=== PATIENT | female | born 1950 | race Caucasian/White ===

== ENCOUNTER 2017-08-31 19:45 | Emergency (ER) | payer OTHER, MEDICARE ==
--- NOTE | 2017-08-31 20:09 | PDOC ---
Rapid Medical Evaluation Medical Evaluation: Allergies Allergy/AdvReac Type Severity Reaction Status Date / Time Sulfa (Sulfonamide Allergy Verified 08/04/13 20:28 Antibiotics) 08/31/17 20:07 I have performed a brief in-person evaluation of this patient. The patient presents with a chief complaint of: "thrombosed hemorrhoid", "can't sit", denies bleeding, sent by on-call GI Dr. Grimm (Dr. Lanza is pt's GI doc ) Pertinent physical exam findings: n/a I have ordered the following: labs The patient will proceed to the ED for further evaluation.
[2017-08-31 20:10] VITALS: BP 151/105; PULSE 91; TEMP 97.7; BMI 26.2
[2017-08-31] MEDS ORDERED: LIDOCAINE HCL 5% TOP OINTMENT 50 GM TUBE TP ONE (21:00)
[2017-08-31] MEDS ORDERED: MINERAL OIL ENEMA 133 ML ENEMA PR ONE ×2 (21:02→23:22)
[2017-08-31 21:55] LABS: BASOPHIL 0.9 % (0-2.0); EOSINOPHIL 0.7 % (0-4.5); MCHC 34.2 g/dl (32.0-36.0); MEAN CELL VOLUME 96.5 fl (80-96); MEAN PLT VOLUME 7.9 fl (7.5-11.1); NEUTROPHILS 71.6 % (42.8-82.8); PLATELET COUNT 195 K/MM3 (134-434); RDW 13.8 % (11.6-15.6); WHITE BLOOD COUNT 8.5 K/mm3 (4.0-10.0)
[2017-08-31 22:06] LABS: INR 1.02 (0.82-1.09); PROTHROMBIN TIME (PATIENT) 11.5 SEC (9.98-11.88)
[2017-08-31 22:44] LABS: ALBUMIN 3.7 g/dl (3.4-5.0); ALK PHOS 55 U/L (45-117); ANION GAP 7 (8-16); BILIRUBIN,TOTAL 0.6 mg/dL (0.2-1.0); CALCIUM 9.5 mg/dL (8.5-10.1); CO2 30 mmol/L (21-32); CREATININE 1.5 mg/dL (0.55-1.02); GLUCOSE,RANDOM 97 mg/dL (74-106); SGOT/AST 18 U/L (15-37); SGPT/ALT 23 U/L (12-78); TOT PROT 6.3 g/dl (6.4-8.2)
--- NOTE | 2017-08-31 23:00 | PDOC ---
History of Present Illness - General History Source: Patient Exam Limitations: No Limitations - History of Present Illness Initial Comments: 08/31/17 23:15 The patient is a 67 year old female presenting with her , with a significant past medical history of hypothyroidism and acute renal failure (9 years ago), who presents to the emergency department with hemorrhoid pain onset today. She notes that she feels as if her hemorrhoids as coming out when she attempted to have a bowel movement today. She notes she did pass a small amount of stool today but that is was too painful to continue. She reports that she talked to her PMD who advised her to come to the ED for further evaluation. The patient denies chest pain, shortness of breath, headache and dizziness. Denies fever, chills, nausea, vomit, diarrhea and constipation. Denies dysuria, frequency, urgency and hematuria. Allergies: Sulfa Past surgical history: None reported Social history: No alcohol, tobacco or drug use reported GI: Dr. Lanza <Satish Zurita - Last Filed: 08/31/17 23:15> <Lanny Fontenot - Last Filed: 09/01/17 00:20> - General Chief Complaint: Hemorrhoids Stated Complaint: PCP SENT Time Seen by Provider: 08/31/17 20:10 Past History <Satish Zurita - Last Filed: 08/31/17 23:15> - Past Medical History COPD: No Thyroid Disease: Yes - Suicide/Smoking/Psychosocial Hx Smoking History: Never smoked Have you smoked in the past 12 months: No Number of Cigarettes Smoked Daily: 0 Information on smoking cessation initiated: No Hx Alcohol Use: No Drug/Substance Use Hx: No Substance Use Type: None <Lanny Fontenot - Last Filed: 09/01/17 00:20> - Past Medical History Allergies/Adverse Reactions: Allergies Allergy/AdvReac Type Severity Reaction Status Date / Time Sulfa (Sulfonamide Allergy Verified 08/31/17 20:10 Antibiotics) Home Medications: Ambulatory Orders Calcitriol [Calcitriol -] 0.25 mcg PO BID 08/04/13 Calcium Carbonate 500 gm PO TID 08/04/13 Levothyroxine [Synthroid -] 88 mcg PO DAILY 08/04/13 Trospium Chloride [Sanctura] 60 mg PO DAILY 08/04/13 Docusate Sodium [Colace -] 100 mg PO BID #14 capsule 09/01/17 Magnesium Citrate 295 ml PO ONCE #1 solution 09/01/17 Review of Systems - Review of Systems Able to Perform ROS?: Yes Comments:: 08/31/17 23:16 GENERAL/CONSTITUTIONAL: No fever or chills. No weakness. HEAD, EYES, EARS, NOSE AND THROAT: No change in vision. No ear pain or discharge. No sore throat.- CARDIOVASCULAR: No chest pain or shortness of breath RESPIRATORY: No cough, wheezing, or hemoptysis. GASTROINTESTINAL: (+) Hemrrhoid pain. No nausea, vomiting, diarrhea or constipation. GENITOURINARY: No dysuria, frequency, or change in urination. MUSCULOSKELETAL: No joint or muscle swelling or pain. No neck or back pain. SKIN: No rash NEUROLOGIC: No headache, vertigo, loss of consciousness, or change in strength/ sensation. ENDOCRINE: No increased thirst. No abnormal weight change HEMATOLOGIC/LYMPHATIC: No anemia, easy bleeding, or history of blood clots. ALLERGIC/IMMUNOLOGIC: No hives or skin allergy. <Satish Zurita - Last Filed: 08/31/17 23:15> *Physical Exam - Vital Signs Last Vital Signs Temp Pulse Resp BP Pulse Ox 97.7 F 91 H 18 151/105 98 08/31/17 20:07 08/31/17 20:07 08/31/17 20:07 08/31/17 20:07 08/31/17 20:07 - Physical Exam Comments: 08/31/17 23:16 GENERAL: Awake, alert, and fully oriented, in no acute distress HEAD: No signs of trauma, normocephalic, atraumatic EYES: PERRLA, EOMI, sclera anicteric, conjunctiva clear ENT: Auricles normal inspection, hearing grossly normal, nares patent, oropharynx clear without exudates. Moist mucosa NECK: Normal ROM, supple, no lymphadenopathy, JVD, or masses LUNGS: No distress, speaks full sentences, clear to auscultation bilaterally HEART: Regular rate and rhythm, normal S1 and S2, no murmurs, rubs or gallops, peripheral pulses normal and equal bilaterally. ABDOMEN: Soft, nontender, normoactive bowel sounds. No guarding, no rebound. No masses EXTREMITIES : Normal inspection, Normal range of motion, no edema. No clubbing or cyanosis. NEUROLOGICAL: Cranial nerves II through XII grossly intact. Normal speech, normal gait, no focal sensorimotor deficits SKIN: Warm, Dry, normal turgor, no rashes or lesions noted. RECTAL EXAM: (+) Engorged hemrrhoid, no external bleeding, hard stool noted in exam. <Satish Zurita - Last Filed: 08/31/17 23:15> - Vital Signs Last Vital Signs Temp Pulse Resp BP Pulse Ox 97.7 F 91 H 18 151/105 98 08/31/17 20:07 08/31/17 20:07 08/31/17 20:07 08/31/17 20:07 08/31/17 20:07 <Lanny Fontenot - Last Filed: 09/01/17 00:20> ED Treatment Course - LABORATORY CBC & Chemistry Diagram: 08/31/17 21:41 08/31/17 21:47 - ADDITIONAL ORDERS Additional order review: Laboratory Results 08/31/17 08/31/17 08/31/17 21:47 21:47 21:41 PT with INR 11.50 INR 1.02 PTT (Actin FS) 26.0 L Sodium 142 Potassium 3.8 Chloride 105 Carbon Dioxide 30 Anion Gap 7 L BUN 38 H Creatinine 1.5 H D Creat Clearance w eGFR 34.53 Random Glucose 97 Calcium 9.5 Total Bilirubin 0.6 D AST 18 ALT 23 Alkaline Phosphatase 55 D Total Protein 6.3 L Albumin 3.7 Blood Type A POSITIVE Antibody Screen Negative 08/31/17 21:41 RBC 4.54 MCV 96.5 H MCHC 34.2 RDW 13.8 MPV 7.9 Neutrophils % 71.6 Lymphocytes % 18.7 D Monocytes % 8.1 D Eosinophils % 0.7 Basophils % 0.9 - Medications Given in the ED: ED Medications Discontinued Medications Generic Name Dose Route Start Last Admin Trade Name Freq PRN Reason Stop Dose Admin Lidocaine HCl 1 applic 08/31/17 21:00 08/31/17 21:59 Xylocaine 5% Top. Ointment TP 08/31/17 21:01 1 applic ONCE ONE Administration Mineral Oil 133 ml 08/31/17 21:02 08/31/17 22:23 Fleet Mineral Oil Rectal Enema - HI 08/31/17 21:03 133 ml NOW ONE Administration <Satish Zurita - Last Filed: 08/31/17 23:15> - LABORATORY CBC & Chemistry Diagram: 08/31/17 21:41 08/31/17 21:47 - ADDITIONAL ORDERS Additional order review: Laboratory Results 08/31/17 08/31/17 21:47 21:47 PT with INR 11.50 INR 1.02 PTT (Actin FS) 26.0 L Sodium 142 Potassium 3.8 Chloride 105 Carbon Dioxide 30 Anion Gap 7 L BUN 38 H Creatinine 1.5 H D Creat Clearance w eGFR 34.53 Random Glucose 97 Calcium 9.5 Total Bilirubin 0.6 D AST 18 ALT 23 Alkaline Phosphatase 55 D Total Protein 6.3 L Albumin 3.7 08/31/17 21:41 RBC 4.54 MCV 96.5 H MCHC 34.2 RDW 13.8 MPV 7.9 Neutrophils % 71.6 Lymphocytes % 18.7 D Monocytes % 8.1 D Eosinophils % 0.7 Basophils % 0.9 - Medications Given in the ED: ED Medications Discontinued Medications Generic Name Dose Route Start Last Admin Trade Name Freq PRN Reason Stop Dose Admin Lidocaine HCl 1 applic 08/31/17 21:00 08/31/17 21:59 Xylocaine 5% Top. Ointment TP 08/31/17 21:01 1 applic ONCE ONE Administration Mineral Oil 133 ml 08/31/17 21:02 08/31/17 22:23 Fleet Mineral Oil Rectal Enema - HI 08/31/17 21:03 133 ml NOW ONE Administration <Lanny Fontenot - Last Filed: 09/01/17 00:20> Medical Decision Making - Medical Decision Making 08/31/17 22:57 a/p: 67yo female with external rectal hemorrhoid -no thrombosed hemorrhoid on exam -will give topical lidocaine for pain control -constipated with hard stool -after lidocaine medication, will give mineral oil enema 08/31/17 23:58 after given enema - large amount of stool in the rectum manual disimpaction resulted in large amount of stool removed from the rectum will give another enema 08/31/17 23:59 pt now having BM 09/01/17 00:09 repeat rectal exam - performed another digital rectal disimpaction with removal of a large amount of stool will apply anusol cream to the external hemorrhoid no internal masses or internal hemorrhoids palpated no blood in stool no bleeding from the hemorrhoid pt feeling much better. <Lanny Fontenot - Last Filed: 09/01/17 00:20> *DC/Admit/Observation/Transfer - Attestations Scribe Attestion: 08/31/17 23:16 Documentation prepared by Satish Zurita, acting as medical office technician for Lanny Fontenot MD <Satish Zurita - Last Filed: 08/31/17 23:15> - Discharge Dispostion Admit: No - Attestations Physician Attestion: 09/01/17 00:20 I, Dr. Lanny Fontenot, DO, attest that this document has been prepared under my direction and personally reviewed by me in its entirety. I further attest, that it accurately reflects all work, treatment, procedures and medical decision -making performed by me. <Lanny Fontenot - Last Filed: 09/01/17 00:20> Diagnosis at time of Disposition: Fecal impaction in rectum, External hemorrhoid - Discharge Dispostion Disposition: HOME Condition at time of disposition: Stable - Prescriptions Prescriptions: Docusate Sodium [Colace -] 100 mg PO BID #14 capsule Magnesium Citrate 295 ml PO ONCE #1 solution - Referrals Referrals: Jimmy Cortez MD [Primary Care Provider] - Dawson Lanza MD [Staff Physician] - - Patient Instructions Printed Discharge Instructions: DI for Hemorrhoids, DI for Fecal Impaction Additional Instructions: Please take all meds as prescribed. Please follow up with Dr. Lanza. Please stop taking the miralax if you develop diarrhea. Please return to the ED with any further concerns. - Post Discharge Activity
[2017-08-31] MEDS ORDERED: DOCUSATE SODIUM 100 MG CAPSULE (FP) PO ONE ×2 (23:23→23:35)
[2017-08-31] MEDS ORDERED: HYDROCORTISONE 2.5% TOPICAL CREAM 30 GM TUBE PR ONE (23:58)
== END 2017-09-01 00:44 | disposition home or self-care (01) ==
LOC: JER 19:45
DX: K64.9 Unspecified hemorrhoids (principal); K56.41 Fecal impaction; E03.9 Hypothyroidism, unspecified
CPT/HCPCS: 36415; 80053; 85025; 85610; 85730; 86850; 86900; 86901; 99282-25

== ENCOUNTER 2020-03-09 06:00 | Inpatient (IN) | payer OTHER, MEDICARE ==
[2020-03-05 10:35] VITALS: BMI 25.2
--- NOTE | 2020-03-08 23:22 | HP ---
Admitting History and Physical - Admission Chief Complaint: right hip osteoarthritis x years History of Present Illness: 69 year old female presents in regard to their right hip. Long-standing history of right hip osteoarthritis. Patient complains of pain, limited range of motion, difficulty ambulating, and difficulty with activities of daily living. Patient has failed conservative treatment options including PO medications, activity modification, injections, and exercise programs. Radiographs revealed severe osteoarthritis of the right hip joint. At this point, patient like to proceed with surgical intervention, right total hip arthroplasty MAKOplasty. History Source: Patient - Past Medical History Cardiovascular: Yes: Hyperlipdemia Renal/: Yes: Renal Failure (H/o) Musculoskeletal: Yes: Osteoarthritis Endocrine: Yes: Hypothyroidism - Past Surgical History Additional Past Surgical History: See written history & physical. - Advance Directives Advance Directives: Yes: Health Care Proxy - Smoking History Smoking history: Never smoked Have you smoked in the past 12 months: No Aproximately how many cigarettes per day: 0 - Alcohol/Substance Use Hx Alcohol Use: No Home Medications - Allergies Allergies/Adverse Reactions: Allergies Allergy/AdvReac Type Severity Reaction Status Date / Time Sulfa (Sulfonamide Allergy Intermediate BLISTERS Verified 03/05/20 10:19 Antibiotics) ON HANDS AND FEET NSAIDS (Non-Steroidal AdvReac Severe RENAL Verified 03/05/20 10:20 Anti-Inflamma FAILURE - Home Medications Home Medications: Ambulatory Orders Calcitriol [Calcitriol -] 0.25 mcg PO BID 08/04/13 Calcium Carbonate 500 gm PO TID 08/04/13 Levothyroxine [Synthroid -] 88 mcg PO DAILY 08/04/13 Atorvastatin Ca [Lipitor] 10 mg PO HS 03/05/20 Tramadol HCl 50 mg PO TID 03/05/20 Review of Systems - Review of Systems Musculoskeletal: reports: Decreased ROM (right hip), Joint Pain (right hip) Physical Examination Constitutional: Yes: Well Nourished, No Distress Eyes: Yes: Conjunctiva Clear HENT: Yes: Atraumatic Neck: Yes: Supple Cardiovascular: Yes: Regular Rate and Rhythm Respiratory: Yes: Regular Gastrointestinal: Yes: Soft ...Rectal Exam: Yes: Deferred Musculoskeletal: Yes: Joint Stiffness (right hip), Other (Limited ROM right hip) Assessment/Plan 69 year old female presents in regard to their right hip. Long-standing history of right hip osteoarthritis. Patient complains of pain, limited range of motion, difficulty ambulating, and difficulty with activities of daily living. Patient has failed conservative treatment options including PO medications, activity modification, injections, and exercise programs. Radiographs revealed severe right hip osteoarthritis. At this point, patient like to proceed with surgical intervention, right total hip arthroplasty MAKOplasty. Pros, cons, risks, benefits, and alternatives of a right total hip arthroplasty MAKOplasty were discussed with the patient at length. Patient confirms their understanding and consents to proceed with a right total hip arthroplasty MAKOplasty.
[~2020-03-09 06:00] MED LIST: BUPIVICAINE 0.25%/MORPH PF/KETOROLAC - 51ML DISP.SYRINGE IA ONE; CEFAZOLIN 2 GM in DEXTROSE 5%-WATER - 50 ML IVPB ONE; CELECOXIB 200 MG CAPSULE PO ONE; TRANEXAMIC ACID 1000 MG/10 ML VIAL IVPUSH ONE
[2020-03-09] MEDS ORDERED: VANCOMYCIN 1,000 MG VIAL (RESTRICTED TO ID ONLY) ONE ×2 (07:07→08:56)
[2020-03-09] MEDS ORDERED: ceFAZolin SODIUM 1 GM VIAL ONE ×3 (07:07→17:59)
[2020-03-09] MEDS: oxyCODONE HCL 10 MG SUSTAINED ACTING TABLET PO ONE ×2 (07:10→13:31)
[2020-03-09] MEDS: PANTOPRAZOLE 40 MG TABLET PO ONE ×2 (07:11→13:32)
[2020-03-09] MEDS ORDERED: TRANEXAMIC ACID 1000 MG/10 ML VIAL ONE (07:18)
[2020-03-09] MEDS ORDERED: PROPOFOL 20 ML ONE ×2 (07:19→10:22)
[2020-03-09] MEDS ORDERED: BUPIVACAINE HCL/PF 0.5% (5 MG/ML) 30 ML VIAL IJ ONE (07:26)
[2020-03-09] MEDS ORDERED: MIDAZOLAM HCL 2 MG/2 ML SINGLE DOSE VIAL ONE (07:26)
[2020-03-09] MEDS ORDERED: BUPIVACAINE HCL/PF 0.5% (5MG/ML) 10 ML VIAL ONE (08:11)
[2020-03-09] MEDS ORDERED: VANCOMYCIN 1,000 MG VIAL (RESTRICTED TO ID ONLY) IVPB ONE (10:14)
[2020-03-09] MEDS ORDERED: TRANEXAMIC ACID 1000 MG/10 ML VIAL IVPUSH ONE ×2 (10:15→10:43)
[2020-03-09] MEDS ORDERED: ONDANSETRON 4 MG/2 ML VIAL ONE (11:10)
[2020-03-09] MEDS ORDERED: traMADol HCL 50 MG TABLET ONE (11:10)
[2020-03-09] MEDS ORDERED: ACETAMINOPHEN INJECTION 100 ML IVPB ONE (11:10)
--- NOTE | 2020-03-09 11:13 | OP ---
Operative Note - Note: Operative Date: 03/09/20 Pre-Operative Diagnosis: Right hip OA Operation: Right MELVA LIDIA Post-Operative Diagnosis: Same as Pre-op Surgeon: Aleksander Nugent X Ray Operator: Jaxon Mcallister Anesthesia: Spinal Estimated Blood Loss (mls): 200
[2020-03-09] MEDS: ONDANSETRON 4 MG/2 ML VIAL IVPUSH PRN ×2 (11:15→15:06)
[2020-03-09] MEDS ORDERED: MAG HYDROX/AL HYDROX/SIMETH 30 ML UNIT-DOSE CUP PO PRN (11:16)
[2020-03-09] MEDS ORDERED: MAGNESIUM HYDROX 2400MG/30ML ORAL SUSPENSION 30 ML CUP PO PRN (11:16)
[2020-03-09] MEDS: ACETAMINOPHEN 1000 MG/100 ML VIAL (NON FORMULARY) IVPB ONE ×2 (11:20→13:32)
[2020-03-09] MEDS ORDERED: LACTATED RINGERS SOLUTION 1,000 ML IV SCH (11:30)
[2020-03-09] MEDS: traMADol HCL 50 MG TABLET PO SCH ×3 (11:30→22:57)
[2020-03-09] MEDS ORDERED: oxyCODONE HCL 5 MG TABLET PO PRN (11:31)
[2020-03-09] MEDS ORDERED: ONDANSETRON 4 MG/2 ML VIAL IVPUSH PRN (11:31)
[2020-03-09] MEDS ORDERED: PROMETHAZINE HCL 25 MG/1 ML VIAL IVPUSH PRN (11:31)
[2020-03-09] MEDS: LEVOTHYROXINE NA 88 MCG TABLET (FP) PO SCH (13:35)
[2020-03-09] MEDS: oxyCODONE HCL 5 MG TABLET PO PRN ×2 (15:07→18:04)
[2020-03-09] MEDS: CALCIUM (OYSTER SHELL) 500 MG TABLET (FP) PO SCH ×2 (15:08→21:24)
--- NOTE | 2020-03-09 15:38 | SURG ---
Surgery Cctv Technician Note Cctv Technician: Jaxon Mcallister PA-C Date of Service: 03/09/20 Diagnosis: Right hip OA Procedure: Right MELVA Total Hip Arthroplasty I was present for the entirety of the operative procedure. For further detail, please refer to operative report. Visit type - Case Type Case Type: Scheduled - New patient This patient is new to me today: Yes Date on this admission: 03/09/20
[2020-03-09] MEDS ORDERED: DEXTROSE 5%-WATER 100 ML IVPB ONE (18:00)
[2020-03-09] MEDS: CEFAZOLIN 2 GM in DEXTROSE 5%-WATER 100 ML IVPB SCH (18:04)
[2020-03-09] MEDS: ACETAMINOPHEN 325 MG TABLET (FP) PO SCH ×2 (18:04→22:58)
[2020-03-09] MEDS ORDERED: DEXAMETHASONE SOD PHOSPHATE 10 MG/1 ML VIAL IVPB ONE (20:00)
[2020-03-09] MEDS: SENNOSIDES/DOCUSATE COMBO (SENNA PLUS) TABLET (UD) PO SCH (21:24)
[2020-03-09] MEDS: ATORVASTATIN CA 10 MG TABLET (FP) PO SCH (21:26)
[2020-03-09] MEDS: GABAPENTIN 300 MG CAPSULE PO SCH (21:26)
[2020-03-09] MEDS: CALCITRIOL 0.25 MCG CAPSULE (FP) PO SCH (21:27)
[2020-03-09] MEDS: ASCORBIC ACID 500 MG TABLET (FP) PO SCH (21:27)
[2020-03-10] MEDS ORDERED: PT OWN MED DRAWER 7, Y5N ONE ×2 (00:06→06:33)
[2020-03-10] MEDS ORDERED: DEXTROSE 5%-WATER 100 ML IVPB ONE (01:08)
[2020-03-10] MEDS ORDERED: ceFAZolin SODIUM 1 GM VIAL ONE (01:08)
[2020-03-10] MEDS: CEFAZOLIN 2 GM in DEXTROSE 5%-WATER 100 ML IVPB SCH (01:15)
[2020-03-10] MEDS: ACETAMINOPHEN 325 MG TABLET (FP) PO SCH ×4 (06:19→22:58)
[2020-03-10] MEDS: CALCIUM (OYSTER SHELL) 500 MG TABLET (FP) PO SCH ×3 (06:19→21:42)
[2020-03-10] MEDS: traMADol HCL 50 MG TABLET PO SCH ×4 (06:19→22:57)
[2020-03-10] MEDS: LEVOTHYROXINE NA 88 MCG TABLET (FP) PO SCH (06:20)
[2020-03-10] MEDS: CALCITRIOL 0.25 MCG CAPSULE (FP) PO SCH ×3 (06:43→21:42)
[2020-03-10 08:37] LABS: HEMATOCRIT 38.5 % (32.4-45.2); HEMOGLOBIN 12.9 GM/dl (10.7-15.3); MCH 32.6 pg (25.7-33.7); MCHC 33.6 g/dl (32.0-36.0); MEAN CELL VOLUME 97.3 fl (80-96); MEAN PLT VOLUME 7.4 fl (7.5-11.1); PLATELET COUNT 319 K/MM3 (134-434); RBC 3.96 M/mm3 (3.60-5.2); RDW 13.4 % (11.6-15.6); WHITE BLOOD COUNT 13.4 K/mm3 (4.0-10.8)
[2020-03-10 08:50] LABS: CALCIUM 8.1 mg/dl (8.5-10); CREATININE 1.2 mg/dl (0.55-1.3); POTASSIUM 3.6 mmol/L (3.5-5.1)
--- NOTE | 2020-03-10 09:33 | SPEC ---
DATE OF OPERATION: 03/09/2020 PREOPERATIVE DIAGNOSIS: Right hip osteoarthritis. POSTOPERATIVE DIAGNOSIS: Right hip osteoarthritis. PROCEDURE: Right total hip replacement with MAKOplasty robotic navigation. ATTENDING: Janett Euceda MD WRAPPER STRIPPER: KRISHNA Davis ANESTHESIA: Spinal plus sedation. ESTIMATED BLOOD LOSS: 200 mL. COMPLICATIONS: None. DISPOSITION: The patient was transferred to the PACU in stable condition. IMPLANTS USED: Umair Accolade II size 4 femoral component, [place] Tre[place]ose 48-mm Trident II acetabular component with 25- and 30-mm acetabular screws, MDM bipolar head ball and liner with inner ceramic +4-mm offset head ball. INDICATIONS: This is a 69-year-old female who presented to the office complaining of severe right hip pain. She was seen and examined by Dr. Euceda, diagnosed with severe right hip osteoarthritis. The patient was initially treated conservatively with injections, medications, but continued to have severe pain and ambulatory dysfunction. She was, therefore, indicated for a right total hip replacement. The risks, benefits, and alternatives to the procedure were explained to the patient in great detail, and she elected to proceed with the surgery. On the day of surgery, the patient was taken to the operating room and placed on the OR table. Spinal anesthesia was administered by the anesthesiologist. The patient was then positioned in the lateral decubitus position on the table and all bony prominences were padded. An axillary roll was placed. The operative hip was then prepped and draped in the usual sterile fashion and intravenous antibiotics were given for infection prophylaxis. A surgical time-out was then performed with the team, and the patients identity, procedure, side, availability of implants, and the administration of antibiotics were confirmed. An approximately 15-cm longitudinal incision was made through the skin centered on the greater trochanter of the hip. This dissection was carried down through the subcutaneous tissues to the deep fascia. This fascia was then incised and a Cobra was placed around the inferior femoral neck. Electrocautery was used to reflect the anterior 40% of the gluteus medius and minimus starting at the musculotendinous junction and leaving a cuff for closure. This was reflected to reveal the capsule of the hip joint. An anterior capsulectomy was performed and the femoral head and neck were visualized. Grade 4 changes were noted diffusely throughout the joint. At this point, three small stab incisions were made superior to the main incision along the iliac crest. Three self-drilling Steinmann pins were then placed and the [employer] pelvic array was attached. Reference points on the limb were then entered into the robotic device and the limb length deficiency, offset, and femoral neck resection level were then calculated by the software. The hip was then dislocated with traction and external rotation. An oscillating saw was used to make the femoral neck cut at the level previously templated, and the femoral head was removed. Attention was then turned to the acetabulum. Retractors were then placed around the acetabulum and the labrum was removed. An acetabular checkpoint pin and the [employer] software were used to register the contours of the acetabulum. The acetabulum was then reamed in a single stage to the preoperatively templated size using the [employer] robotic arm. The appropriately sized cup was then impacted and had solid fixation as well as the preset inclination and version of 40 and 20 degrees, respectively. A polyethylene liner was then placed in the cup. Attention was then turned back to the femur, which was externally rotated for improved visualization. A femoral neck elevator was used to present the femoral neck cut, a box osteotome was used to enter the femoral canal, and a canal finder was used to go down the femoral shaft. The Keith broaches were used sequentially until the optimal scratch fit was achieved. This correlated with the preoperatively templated size. From here, several different offset head and neck configurations were tested until excellent stability and length were obtained. These measurements were quantified using the [employer] software. All trial components were then removed, the femur was copiously irrigated, and the final components were placed. Leg length and stability were checked again and found to be excellent. Irrigation was performed again. Wound closure was started by repairing the abductor muscles with a no. 2 FiberWire stitch in a Krackow configuration passed through bone tunnels in the greater trochanter and tied over a bony bridge. This repair was then reinforced with a 0 V-Loc 180 barbed suture. Next, no. 1 Polysorb and 0 V-Loc 180 were used to close the fascia. The deep subcutaneous tissue was closed with no. 1 Polysorb sutures, and 2-0 Polysorb was used for the superficial subcutaneous tissue. The skin was closed using both 3-0 V-Loc 90 suture in a running subcuticular fashion and SwiftSet skin adhesive. The Keith array and pins were removed from the iliac crest and the stab incision sites were irrigated and closed with 4-0 Polysorb sutures and SwiftSet skin adhesive. Once this was completed, a sterile dressing was applied. The patient was then awakened and taken to the PACU in stable condition. ADDENDUM: After final implants were placed, a 3-minute dilute Betadine soak was performed. Following this, the wound was thoroughly irrigated with normal saline via pulsatile lavage, and wound closure was begun. JANETT EUCEDA M.D. [id number]
[2020-03-10] MEDS: APIXABAN 2.5 MG TABLET PO SCH ×2 (10:43→21:41)
[2020-03-10] MEDS: GABAPENTIN 300 MG CAPSULE PO SCH ×2 (10:44→21:41)
[2020-03-10] MEDS: ASCORBIC ACID 500 MG TABLET (FP) PO SCH ×2 (10:44→21:42)
[2020-03-10] MEDS: PANTOPRAZOLE 40 MG TABLET PO SCH (10:44)
[2020-03-10] MEDS: MULTIVITAMINS (DAILY MVI) TABLET (FP) PO SCH (10:44)
[2020-03-10] MEDS: SENNOSIDES/DOCUSATE COMBO (SENNA PLUS) TABLET (UD) PO SCH ×2 (10:44→21:41)
--- NOTE | 2020-03-10 11:29 | PN ---
Progress Note (short form) - Note Progress Note: ANESTHESIA POSTOP 69 yo female POD #1 s/p R LIDIA, spinal and PNB Patient sitting in chair. Pain tolerable. Tolerating PO. Active participation in PT and ambulation. VSS, Afebrile Continue current care. Encouraged use of IS. No anesthetic complications.
--- NOTE | 2020-03-10 19:43 | PN ---
Progress Note (short form) - Note Progress Note: Pt seen and examined. Doing well. AVSS Selected Entries 03/10/20 03/10/20 18:00 19:33 Temperature 97.9 F Pulse Rate 79 Respiratory 18 Rate Blood Pressure 124/65 O2 Sat by Pulse 97 Oximetry (%) Oxygen Delivery Room Air Method Laboratory Tests 03/10/20 03/10/20 06:00 08:32 WBC 13.4 H Hgb 12.9 Hct 38.5 Plt Count 319 Sodium 139 Potassium 3.6 Chloride 101 Carbon Dioxide 28 Anion Gap 10 Creatinine 1.2 Random Glucose 191 H Calcium 8.1 L Gen: NAD RLE: c/d/i, NVID A/P POD#1 s/p R LIDIA PT/OOB D/C home in AM
--- NOTE | 2020-03-10 19:52 | DS ---
Physical Examination Vital Signs: Vital Signs Temperature 97.9 F 03/10/20 18:00 Pulse Rate 79 03/10/20 18:00 Respiratory Rate 18 03/10/20 19:33 Blood Pressure 124/65 03/10/20 18:00 O2 Sat by Pulse Oximetry (%) 97 03/10/20 19:33 Labs: CBC, BMP 03/10/20 08:32 03/10/20 06:00 Discharge Summary Problems reviewed: Yes Reason For Visit: OSTEOARTHRITIS RIGHT HIP Current Active Problems Osteoarthritis of right hip (Acute) Procedures: Principal: Pineda FRYE [facility] Hospital Course: Admitted for elective surgery. Procedure performed without complications. Pt received postoperative antibiotic prophylaxis and DVT ppx. Ambulated with physical therapy. Stable for discharge home with outpatient followup. Condition: Stable - Instructions Diet, Activity, Other Instructions: Dr Nugent - Hip Replacement Instructions Keep the Aquacel dressing on until removed by Dr. Nugent in 2 weeks - it is antibacterial and waterproof and you can shower with it on. Call the office for a follow-up appointment with Dr. Nugent in 2 weeks. [phone] Take ELIQUIS 2.5mg twice daily for 35 days to prevent blood clots in your legs. Take one Pantoprazole 40mg daily for 6 weeks to protect against heartburn and ulcers. Take Cephalexin (antibiotic) 3x/day for 10 days to help prevent skin infection. Take a multivitamin, stool softener and extra Vitamin C supplement daily. For pain: *Mild pain (1-3/10): Take 1 Tramadol tablet every 4 hours as needed. Moderate pain (4-6/10): Take 1 Tramadol tablet and 1 Percocet tablet every 4 hours as needed. Severe pain (7-10/10): Take 1 Tramadol tablet and 2 Percocet tablets every 4 hours as needed. Activity: You can put as much weight on the operative leg as you want. For the first 6 weeks, all you need to do is walk around the house, go up/down stairs, and sit down/get up. After 6 weeks when everything is healed (and bone has grown into the implant) you will be sent for more intensive outpatient physical therapy. Always use a walker or cane for balance and to prevent falls. Expect to see swelling / bruising from the operative site all the way down to your toes. Wear the Compression stocking on the operative side during the day to minimize how much swelling there is in your foot/ankle. Don't wear the stocking at night. You don't have to wear the stocking on the other side. Disposition: VNS/HOME HEALTH CARE - Home Medications Comprehensive Discharge Medication List: Ambulatory Orders Calcitriol [Calcitriol -] 0.25 mcg PO BID 08/04/13 Calcium Carbonate 500 gm PO TID 08/04/13 Levothyroxine [Synthroid -] 88 mcg PO DAILY 08/04/13 Atorvastatin Ca [Lipitor] 10 mg PO HS 03/05/20 Apixaban [Eliquis -] 2.5 mg PO BID #70 tablet 03/10/20 Ascorbic Acid [Vitamin C -] 500 mg PO BID tablet 03/10/20 Cephalexin Monohydrate [Keflex -] 500 mg PO TID #30 capsule 03/10/20 Multivitamins [Multivit ([facility] Formulary)] 1 tab PO DAILY tab 03/10/20 Oxycodone HCl/Acetaminophen [Percocet 5-325 mg Tablet] 1 - 2 tab PO Q4H PRN #60 tablet MDD 10 03/10/20 Pantoprazole Sodium [Protonix -] 40 mg PO DAILY #40 tablet.ec 03/10/20 Sennosides/Docusate Sodium [Pericolace -] 2 tablet PO BID tablet 03/10/20 traMADol HCL [Ultram -] 50 mg PO Q4H PRN #60 tablet MDD 6 03/10/20
[2020-03-10] MEDS: ATORVASTATIN CA 10 MG TABLET (FP) PO SCH (21:41)
[2020-03-11] MEDS: ACETAMINOPHEN 325 MG TABLET (FP) PO SCH ×2 (05:58→10:49)
[2020-03-11] MEDS: CALCIUM (OYSTER SHELL) 500 MG TABLET (FP) PO SCH (05:59)
[2020-03-11] MEDS: traMADol HCL 50 MG TABLET PO SCH ×2 (05:59→10:48)
[2020-03-11] MEDS: LEVOTHYROXINE NA 88 MCG TABLET (FP) PO SCH (06:00)
[2020-03-11 08:11] LABS: HEMATOCRIT 38.4 % (32.4-45.2); HEMOGLOBIN 12.6 GM/dl (10.7-15.3); MCH 32.5 pg (25.7-33.7); MCHC 32.7 g/dl (32.0-36.0); MEAN CELL VOLUME 99.4 fl (80-96); MEAN PLT VOLUME 7.9 fl (7.5-11.1); PLATELET COUNT 290 K/MM3 (134-434); RBC 3.86 M/mm3 (3.60-5.2); RDW 13.1 % (11.6-15.6); WHITE BLOOD COUNT 11.1 K/mm3 (4.0-10.8)
[2020-03-11 08:28] LABS: CALCIUM 8.7 mg/dl (8.5-10); CREATININE 1.4 mg/dl (0.55-1.3); POTASSIUM 3.3 mmol/L (3.5-5.1)
[2020-03-11] MEDS: APIXABAN 2.5 MG TABLET PO SCH (10:16)
[2020-03-11] MEDS: GABAPENTIN 300 MG CAPSULE PO SCH (10:16)
[2020-03-11] MEDS: ASCORBIC ACID 500 MG TABLET (FP) PO SCH (10:16)
[2020-03-11] MEDS: CALCITRIOL 0.25 MCG CAPSULE (FP) PO SCH (10:16)
[2020-03-11] MEDS: PANTOPRAZOLE 40 MG TABLET PO SCH (10:16)
[2020-03-11] MEDS: MULTIVITAMINS (DAILY MVI) TABLET (FP) PO SCH (10:16)
[2020-03-11] MEDS: SENNOSIDES/DOCUSATE COMBO (SENNA PLUS) TABLET (UD) PO SCH (10:16)
[2020-03-11 10:27] VITALS: BP 122/68; PULSE 81; TEMP 97.6
--- NOTE | 2020-03-11 17:13 | PATH ---
Surgical Pathology Report Patient Name: GRAHAM CABRERA Med. Rec. #: [id number] /Age/Gender: 1950 (Age: 69) / F Account: [id number] Location: [facility] MED-SURG Taken: 03/09/2020 Received: 03/09/2020 Reported: 03/11/2020 Physicians: Aleksander Nugent M.D. Specimen(s) Received RIGHT FEMORAL HEAD Clinical History Right hip osteoarthritis Final Diagnosis RIGHT FEMORAL HEAD, RESECTION: DEGENERATIVE JOINT DISEASE, RIGHT HIP. Electronically Signed Feroz Stack M.D. Gross Description Received in formalin, labeled "right hip femoral head," is a 4.0 x 3.8 x 3.8 cm. femoral head with a 1.3 cm in length portion of femoral neck attached. The margin of resection is smooth. There is a 3.8 cm in greatest dimension area of eburnation present. The remaining articular surface is andre-yellow and diffusely nodular and granular. The underlying trabecular bone is yellow and hard. A technical service representative section is submitted in one cassette, following decalcification. [facility]
== END 2020-03-11 14:20 | disposition home health service (06) | DRG 470 ==
LOC: FM/S 06:00
PROVIDERS: ADMIT Student in an Organized Health Care Education/Training Program; ATTEND Student in an Organized Health Care Education/Training Program
PROC: 8E0Y0CZ Robotic Assisted Procedure of Lower Extremity, Open Approach (ICD-10-PCS; 2020-03-09)
PROC: 0SR90JA Replacement of Right Hip Joint with Synthetic Substitute, Uncemented, Open Approach (ICD-10-PCS; principal; 2020-03-09 08:50)
DX: M16.11 Unilateral primary osteoarthritis, right hip (principal); E03.9 Hypothyroidism, unspecified; E78.5 Hyperlipidemia, unspecified
CPT/HCPCS: 36415; 73502-TC-RT-FY; 80048; 85027; 88304-TC; 88311-TC; 94760; 97010-GP; 97116-GP; 97161-GP; J0131; J1100; U0003

== ENCOUNTER 2022-03-04 13:29 | Emergency (ER) | payer OTHER, MEDICARE ==
[2022-03-04 13:36] VITALS: BP 152/80; PULSE 96; TEMP 97.7; BMI 26.9
[2022-03-04] MEDS ORDERED: ACETAMINOPHEN 500 MG TABLET (FP) PO ONE (14:31)
[2022-03-04] MEDS ORDERED: ACETAMINOPHEN 500 MG TABLET (FP) ONE (14:32)
== END 2022-03-04 19:11 | disposition home or self-care (01) ==
LOC: JERFT 13:29
DX: M25.561 Pain in right knee (principal); M25.531 Pain in right wrist; M25.532 Pain in left wrist; W01.0XXA Fall on same level from slipping, tripping and stumbling without subsequent striking against object, initial encounter
CPT/HCPCS: 70450-TC; 70486-TC; 72170-TC-FY; 72192-TC; 73110-TC-LT-FY; 73110-TC-RT-FY; 73130-TC-LT-FY; 73130-TC-RT-FY; 73502-TC-RT-FY; 73562-TC-RT-FY; 99285-25

== ENCOUNTER 2022-12-01 04:09 | Day surgery (SDC) | payer OTHER, MEDICARE ==
[2022-11-29 08:59] VITALS: BMI 26.2
[~2022-12-01 04:09] MED LIST changes: -BUPIVICAINE 0.25%/MORPH PF/KETOROLAC - 51ML DISP.SYRINGE IA ONE; -CEFAZOLIN 2 GM in DEXTROSE 5%-WATER - 50 ML IVPB ONE; -CELECOXIB 200 MG CAPSULE PO ONE; -TRANEXAMIC ACID 1000 MG/10 ML VIAL IVPUSH ONE; +ceFAZolin SODIUM 1 GM VIAL IVPB ONE
[2022-12-01] MEDS ORDERED: MIDAZOLAM HCL 2 MG/2 ML SINGLE DOSE VIAL ONE (13:07)
[2022-12-01] MEDS ORDERED: ceFAZolin SODIUM 1 GM VIAL IVPB ONE (13:09)
[2022-12-01] MEDS ORDERED: ceFAZolin SODIUM 1 GM VIAL ONE ×2 (13:19)
[2022-12-01] MEDS ORDERED: IOHEXOL 300 MG/ML INFUS..BTL IV ONE (13:20)
[2022-12-01] MEDS ORDERED: ONDANSETRON 4 MG/2 ML VIAL IVPUSH PRN (13:34)
[2022-12-01] MEDS ORDERED: oxyCODONE HCL 5 MG TABLET PO PRN (13:34)
[2022-12-01 15:49] VITALS: RESP 20; TEMP 97.8
[2022-12-01] MEDS ORDERED: ACETAMINOPHEN 1000 MG/100 ML BAG IVPB ONE (16:01)
[2022-12-01] MEDS ORDERED: ACETAMINOPHEN INJECTION 100 ML IVPB ONE (16:04)
[2022-12-01 17:50] VITALS: BP 159/78; PULSE 66
== END 2022-12-01 17:43 | disposition home or self-care (01) ==
LOC: JASU-SURG 04:09
PROVIDERS: ATTEND Urology
PROC: BT14YZZ Fluoroscopy of Kidneys, Ureters and Bladder using Other Contrast (ICD-10-PCS; principal; 2022-12-01 12:00)
DX: N13.5 Crossing vessel and stricture of ureter without hydronephrosis (principal)
CPT/HCPCS: 76000-TC-FY; 94760